=== PATIENT | female | born 1985 | race Caucasian/White ===

== ENCOUNTER 2020-11-30 15:16 | Outpatient (CLI) | payer BC ==
[2020-11-30 16:28] LABS: BHCG - Serum Negative (NEGATIVE); Pregs Control Background? CLEAR/WHITE (CLR/WHITE); Pregs Control Bar Appear? YES (CONTROL BAR)
[2020-12-01 01:47] LABS: SARS-CoV-2 PCR by NAA Not Detected (NotDetected)
== END 2020-11-30 15:17 | disposition home or self-care (01) ==
LOC: CSHLAB 15:16
PROVIDERS: ATTEND Surgery
DX: Z01.812 Encounter for preprocedural laboratory examination (principal); Z20.822 Contact with and (suspected) exposure to COVID-19; K80.20 Calculus of gallbladder without cholecystitis without obstruction
CPT/HCPCS: 84703; 87635; U0003; U0005

== ENCOUNTER 2020-12-05 06:04 | Day surgery (SDC) | payer BC, MEDICAID ==
[2020-12-04 14:20] VITALS: BMI 35.6
[2020-12-05] MEDS ORDERED: Lidocaine 1% MPF 2 ML VIAL ONE (06:32)
[2020-12-05] MEDS ORDERED: EPINEPHrine 1 MG/ML AMP ONE (06:49)
[2020-12-05] MEDS ORDERED: Bupivacaine 0.25% HCL 30 ML VIAL ONE (06:49)
[2020-12-05] MEDS ORDERED: Midazolam HCl 2 mg/2 ml Vial ONE ×2 (07:13→07:33)
[2020-12-05] MEDS ORDERED: Ketorolac Tromethamine 15 MG/ML VIAL ONE ×2 (07:33)
[2020-12-05] MEDS ORDERED: PROPOFOL 20 ML ONE (07:33)
[2020-12-05] MEDS ORDERED: Fentanyl 100 MCG/2 ML VIAL ONE (07:33)
[2020-12-05] MEDS ORDERED: Glycopyrrolate 0.2 MG/ML 5 ML SYRINGE ONE (07:34)
[2020-12-05] MEDS ORDERED: Ondansetron PF 4 MG/2 ML Vial ONE (07:34)
[2020-12-05] MEDS ORDERED: Dexamethasone 4 mg/ml Vial ONE (07:34)
[2020-12-05] MEDS ORDERED: Rocuronium Bromide 10 MG/ML (10ML VIAL) ONE (07:34)
[2020-12-05] MEDS ORDERED: Lidocaine 1% PF 5 ML VIAL ONE (07:34)
[2020-12-05] MEDS ORDERED: SUGAMMADEX SODIUM 500 MG/5 ML VIAL ONE (08:22)
== END 2020-12-05 11:00 | disposition home or self-care (01) ==
LOC: CSHSDC 06:04
PROVIDERS: ATTEND Surgery
PROC: 0FT44ZZ Resection of Gallbladder, Percutaneous Endoscopic Approach (ICD-10-PCS; principal; 2020-12-05)
DX: K80.10 Calculus of gallbladder with chronic cholecystitis without obstruction (principal)
CPT/HCPCS: 88304; J0171; J0690; J1100; J1885; J2250; J2405; J2704; J3010; S0020